=== PATIENT | female | born 1995 | race Caucasian/White ===

== ENCOUNTER 2025-07-30 14:56 | Emergency (ER) | payer BC, SELFPAY ==
[2025-07-30 15:03] VITALS: BP 140/93
--- NOTE | 2025-07-30 15:54 | ED.GENMED ---
History of Present Illness
General
Chief Complaint: Back Pain
Time Seen by Provider: 07/30/25 15:28
History of Present Illness
History of Present Illness:
29-year-old female presents to the emergency department for evaluation of acute low back pain with left leg paresthesia beginning after bending over to feed her animals at home. She has a known history of L5-S1 disc herniation. Denies any loss of
bladder or bowel function. Able to ambulate however with severe pain. Took Tylenol without improvement.
Review of Systems
Review of Systems
Allergies reviewed?: Yes
All Other Systems: ROS reviewed and negative except as documented in HPI and ROS
Phy Exam
Physical Exam
Physical Exam:
GEN: Well appearing, NAD, WDWN
HEENT: Oral mucosa moist, no scleral icterus
Cardiac: Regular rate
Lung: No respiratory distress, no tachypnea
MSK: No gross deformity or injuries, no reproducible tenderness to the lumbar spine or paraspinous musculature. Bilateral lower extremity strength is 5 out of 5 in all hoff, sensation intact to all distributions and symmetric
Skin: Good color, no pallor or jaundice, no rashes
Neuro: AO x3, moves all extremities freely
Psych: Calm, cooperative
Course
Orders/Labs/Results
Orders:
Orders
07/30/25 15:54
Cyclobenzaprine HCl [Flexeril] 10 mg PO NOW STA
Ketorolac [Toradol] 30 mg IM NOW STA
Vital Signs
Initial and Last Documented VS:
Initial Vital Signs
Temp Pulse Resp BP Pulse Ox
98.8 F 75 16 140/93 99
07/30/25 15:03 07/30/25 15:03 07/30/25 15:03 07/30/25 15:03 07/30/25 15:03
Last Documented Vital Signs
Temp Pulse Resp BP Pulse Ox
98.8 F 75 16 140/93 99
07/30/25 15:03 07/30/25 15:03 07/30/25 15:03 07/30/25 15:03 07/30/25 15:54
MDM/Problems Addressed
MDM/Problems Addressed:
Patient is clinically well-appearing no focal signs of neurologic compromise at this time. She was given NSAIDs and muscle relaxants without substantial improvement. Provide additional pain medication recommend outpatient primary care follow-up to
discuss MRI improvement. No indication for imaging in the ED as there is no reported trauma
*Pulse Oximetry
SaO2: 99
Oxygen Mode of Delivery: Room air
Patient hypoxic: no
*Critical Care Note
Total Time (30-74mins, 75-104mins- exclusive of procedures): Not Applicable
ED Attending Note
-
Portions of this chart may have been created with voice recognition software.� Occasional wrong word or��sound alike� substitutions may have occurred due to the inherent limitations of voice recognition software.
Discharge Plan
Departure
Patient Disposition: Home (Routine Discharge)
Date of Disposition: 07/30/25
Time of Disposition: 17:07
Patient with high blood pressure during this ER visit?: No
Discharge Problem:
Acute lumbar radiculopathy
Instructions: Radiculopathy (DC)
Prescriptions:
New
celecoxib [Celebrex] 200 mg capsule
200 mg PO BID PRN (Reason: Pain) Qty: 20 0RF
oxycodone-acetaminophen [Percocet] 5-325 mg tablet
1 tab PO Q6HPRN PRN (Reason: pain) Qty: 10 0RF
Referrals:
UNKNOWN - PT DOES,NOT KNOW [Family Provider]
Activity Restrictions/Additional Instructions:
See your primary doctor for MRI if pain does not improve
Interventions
Interventions:
*Risk Screen - Suicide Last Done: 07/30/25 17:00
*General Assessment Last Done: 07/30/25 17:00
*Neglect/Abuse Screening Last Done: 07/30/25 17:00
*ED COVID-19 Vaccine History Last Done: 07/30/25 17:00
*ED Influenza Vaccine History Last Done: 07/30/25 17:00
*Nursing Disposition Last Done: 07/30/25 17:57
ED-Musculoskeletal Assessment Last Done: 07/30/25 17:00
Discharge Date and Time
Discharge Date/Time: 07/30/25 17:57
Print Language: MAURITIAN
[2025-07-30] MEDS: FLEXERIL 10 MG PO (16:02)
[2025-07-30] MEDS: TORADOL 30 MG IM (16:02)
== END 2025-07-30 17:57 | disposition home or self-care (01) ==
LOC: EMR 14:56
PROVIDERS: EMERGENCY PHYSICIAN Emergency Medicine
DX: M54.16 Radiculopathy, lumbar region (principal); M51.27 Other intervertebral disc displacement, lumbosacral region
CPT/HCPCS: 99284; 96372